=== PATIENT | male | born 2000 | race Two or more races ===

== ENCOUNTER 2024-10-04 10:42 | Outpatient (CLI) | payer OTHER | END 2024-10-04 10:50 | disposition home or self-care (01) | LOC: RAD 10:42 | PROVIDERS: ATTEND Orthopaedic Surgery | DX: M25.562 Pain in left knee (principal); M25.572 Pain in left ankle and joints of left foot ==

== ENCOUNTER 2024-11-11 12:20 | Outpatient (CLI) | payer OTHER | END 2024-11-11 12:38 | disposition home or self-care (01) | LOC: RAD 12:20 → SONOGRAMA 12:20 | PROVIDERS: ATTEND Orthopaedic Surgery | DX: M76.72 Peroneal tendinitis, left leg (principal); M66.362 Spontaneous rupture of flexor tendons, left lower leg ==

== ENCOUNTER 2024-12-15 14:13 | Outpatient (CLI) | payer OTHER | END 2024-12-15 14:15 | disposition home or self-care (01) | LOC: RAD 14:13 | PROVIDERS: ATTEND Orthopaedic Surgery | DX: M19.072 Primary osteoarthritis, left ankle and foot (principal) ==